=== PATIENT | female | born 1995 | race Caucasian/White ===

== ENCOUNTER → 2016-10-15 | Day surgery (SDC) | payer OTHER ==
[~2016-10-15] MED LIST: CYCLOBENZAPRINE5 M2 PO; NAPROSYN500 M1 PO
--- NOTE | 2016-10-15 11:44 | Operative Report ---
Operative/Inv Procedure Report Surgery Date: 10/15/16 Name of Procedure: Diagnostic laparoscopy peritoneal washings Pre-Operative Diagnosis: Pelvic mass Post-Operative Diagnosis: Same PCO Estimated Blood Loss: less than 50ml Surgeon/Tube Coater: YNES VALLADARES MD Anesthesia: general endotracheal tube Operative/Procedure Note Note: Procedure note patient was taken the operating room placed supine position after adequate anesthesia patient placed in dorsolithotomy position the vagina from dorsal fashion bladder was catheterized examination under anesthesia performed patient tolerated this well at this point CO2 tenaculum was placed on the Intralipid service: Was placed on the Cuevas had been placed sterilely surgeon regowned and gloved at the level the umbilicus a stab incision was made to allow for the entry of Veress approximately on 3 L of CO2 to liver edge dullness which point the Veress needle was removed at this point at the umbilicus incision was extended to allow for 1 cm to allow for the insertion of a 10 mm trocar trocar was inserted atraumatically sheath remained in place through that sheath a laparoscope was placed under direct visualization 2 fingerbreadths of symptoms pubis in midline skin was cut a 5 mm port was placed the sheath remained in place through that sheath a blunt port was placed peritoneal fluids were obtained peritoneal washings were obtained the specimen was sent to pathology patient tolerated that well pictures were taken the plan since removed from the abdomen the incision at the umbilicus was oversewn using 0 on the skin was reapproximated 3-o for both incisions on Marcaine was injected underneath the skin patient tolerated that well on the counts were correct the Cuevas was removed the Jordan was removed the patient was returned spine position extubated awakened from anesthesia and transferred recovery room awake alert counts correct Findings: Normal uterus ovaries consistent polycystic ovarian syndrome otherwise normal anatomy
== END ==
LOC: STS 01:15
DX: E28.2 Polycystic ovarian syndrome (principal); R19.00 Intra-abdominal and pelvic swelling, mass and lump, unspecified site
CPT/HCPCS: 87075; 36415; 81025; 88305; C9399; J0131; J1580; J1885; J2250; J2405